=== PATIENT | female | born 1990 | race Native Hawaiian/Other Pacific Islander ===

== ENCOUNTER 2017-12-23 18:59 | Outpatient (CLI) | payer BC | END 2017-12-23 22:58 | disposition home or self-care (01) | LOC: RAD 18:59 | DX: M54.12 Radiculopathy, cervical region (principal) ==

== ENCOUNTER 2019-06-12 17:23 | Emergency (ER) | payer OTHER ==
[~2019-06-12] VITALS: Ht 157.5 cm; Wt 63.5 kg
[2019-06-12 17:47] LABS: PLATELET COUNT 259 K/uL (152-353)
[2019-06-12 17:56] LABS: POTASSIUM 3.2 mmol/L (3.6-5.2); SODIUM 140 mmol/L (136-145)
[2019-06-12 20:39] VITALS: BP 94/58; TEMP 97.9
== END 2019-06-12 20:39 | disposition home or self-care (01) ==
LOC: ED 17:23
PROVIDERS: Emergency Medicine
PROC: 0T9B70Z Drainage of Bladder with Drainage Device, Via Natural or Artificial Opening (ICD-10-PCS; principal; 2019-06-12)
DX: E86.0 Dehydration (principal); E16.2 Hypoglycemia, unspecified; R00.0 Tachycardia, unspecified
CPT/HCPCS: 51702; 80053; 80307; 81000; 82550; 82962; 83036; 83735; 84484; 84702; 85027; 93005; 96360; 96375; 99284; J2310; J7060